=== PATIENT | male | born 1960 | race Caucasian/White ===

== ENCOUNTER 2016-11-21 08:22 | Day surgery (SDC) | payer MEDICARE, MEDICAID ==
[~2016-11-21 08:22] MED LIST: Lactated Ringers 1,000 ML IV SCH
[2016-11-21] MEDS ORDERED: Propofol 200 MG/20 ML SDV ONE (11:22)
[2016-11-21] MEDS ORDERED: fentaNYL 100 MCG/2 ML SDV ONE (11:22)
[2016-11-21] MEDS ORDERED: Lactated Ringers 1,000 ML ONE (12:09)
[2016-11-21 13:58] VITALS: BP 132/60
--- NOTE | 2016-11-21 17:30 | OR ---
DATE OF SURGERY: 11/21/2016. REFERRING PROVIDER: Dianna Tam DO. PRE-OPERATIVE DIAGNOSES: Positive FIT stool card. This is the patient's first colonoscopy. There is no known family history of colon cancer or colon polyps. POST-OPERATIVE DIAGNOSES: 1. Moderately poor prep which did require a significant amount of suctioning. However, I was able to get a good view of the vast majority of the colon mucosa. 2. 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 3. Otherwise, normal colon. PROCEDURE: Colonoscopy. SURGEON: Manny Persaud M.D. ANESTHESIA: Monitored anesthesia care. BOWEL PREP: Moderately poor. DESCRIPTION OF OPERATION: Thomas is a 56-year-old male. The patient was brought to the endoscopy suite after discussing risks and benefits of the procedure. Informed consent was obtained for conscious sedation and colonoscopy with or without biopsy and/or polypectomy. We also discussed possibility of missed lesions. Pre-procedure exam was unremarkable. IV, oxygen, and monitors were placed. The patient was placed in the left lateral decubitus position. Sedation was administered and a digital rectal exam was performed and was unremarkable. Colonoscope was passed to the rectum slowly advanced all the way to the cecum. The bowel prep was moderately poor and did require significant amount of suctioning. However, I was able to adequately view the vast majority of the colonic mucosa. Colonoscope was passed into the rectum and slowly advanced all the way to the cecum. Cecum was viewed and photographed. The colonoscope was slowly withdrawn and the mucosa was closed observed in a direct circumferential manner. The ascending colon was unremarkable. The transverse colon was unremarkable. The descending colon was unremarkable. The sigmoid colon and rectal areas were remarkable for some melanosis coli due to his chronic laxative use. Retroflexion was performed. Rectal mucosa unremarkable. Scope was removed. The patient tolerated the procedure well. The patient was monitored until that baseline status. Discharge instructions were reviewed and the patient was discharged in good condition. COMPLICATIONS: None. TOTAL TIME: 31 minute. RECOMMENDATIONS/FOLLOWUP: The patient to repeat colonoscopy in 10 years. I would like to kindly thank you, Dianna Tam, for this referral. DMB: 11/21/2016 13:02:53 MODL: 11/21/2016 17:22:11 /[id number]
== END 2016-11-21 13:25 | disposition home or self-care (01) ==
LOC: VM.SDS 08:22
PROVIDERS: ATTEND Family Medicine
DX: K63.89 Other specified diseases of intestine (principal); E11.9 Type 2 diabetes mellitus without complications; Z98.890 Other specified postprocedural states; Z79.899 Other long term (current) drug therapy
CPT/HCPCS: 00810; 45378; 82962; J2704; J3010; J7120

== ENCOUNTER 2020-01-14 10:56 | Emergency (ER) | payer MEDICARE, MEDICAID ==
[2020-01-14 11:05] VITALS: BP 122/67; PULSE 62
[2020-01-14] MEDS ORDERED: Sodium Chloride 0.9% 10 ML Syringe FLUSH PRN (11:19)
--- NOTE | 2020-01-14 11:26 | EDM.PDOC ---
ED HPI GENERAL MEDICAL PROBLEM - General Chief Complaint: General Stated Complaint: ER Time Seen by Provider: 01/14/20 11:05 Source of Information: Reports: Patient, Other (long-term paperwork ) History Limitations: Reports: No Limitations - History of Present Illness INITIAL COMMENTS - FREE TEXT/NARRATIVE: Patient comes in to the emergency department with complaints of a decrease in responsiveness and bloody dark urine with lethargy approximately the last 3 days. Patient was sent to the emergency department via patient's PCP after receiving a phone call from the long-term stating that the patient continues to have dark bloody urine and continues to be more lethargic than he normally is. The long-term staff had also noticed that the patient's blood sugar was greater than 400 today which is very abnormal for the patient he normally has very controlled blood sugars. The patient's PCP did obtain a urine sample yesterday which did not show any active infection however did show blood, high bili, and trace of leukocytes. Also documented that the patient was complaining of right abdominal pain that comes and goes. However the patient denies having any right abdominal discomfort today. Onset: Gradual Quality: Reports: Other Improves with: Reports: None Worsens with: Reports: None Associated Symptoms: Reports: Loss of Appetite, Malaise Right Abdomen Pain Score (Numeric/FACES): 5 - Related Data Allergies Allergy/AdvReac Type Severity Reaction Status Date / Time No Known Allergies Allergy Verified 01/14/20 11:13 Home Meds: Home Meds Acetaminophen 325 mg PO Q4H PRN 10/29/16 [History] Aspirin [Halfprin] 81 mg PO BRK 10/29/16 [History] Baclofen 10 mg PO TID 10/29/16 [History] Bisacodyl [Dulcolax] 5 mg PO DAILY PRN 10/29/16 [History] Bisacodyl [Dulcolax] 10 mg RECTAL DAILY PRN 10/29/16 [History] Calcium Citrate/Vitamin D3 [Calcium Citrate + D] 1 tab PO BIDMEALS 10/29/16 [History] Famotidine 20 mg PO BID 10/29/16 [History] Loperamide [Imodium] 2 mg PO ASDIRECTED 10/29/16 [History] Polyethylene Glycol 3350 [MiraLAX] 17 gm PO DAILY 10/29/16 [History] Potassium Chloride [Klor-Con M20] 20 meq PO DAILY 10/29/16 [History] Propranolol [Inderal] 20 mg PO BID 10/29/16 [History] QUEtiapine [SEROquel] 350 mg PO BEDTIME 10/29/16 [History] Sennosides/Docusate Sodium [Senna-Docusate Sodium] 2 tab PO DAILY 10/29/16 [History] Terbinafine [IJD: LamISIL AT 1% Crm] 1 applic TOP DAILY PRN 10/29/16 [History] atorvaSTATin [Lipitor] 10 mg PO BEDTIME 10/29/16 [History] metFORMIN [Glucophage] 1,000 mg PO BIDMEALS 10/29/16 [History] Cyanocobalamin (Vitamin B12) [Vitamin B12] 1,000 mcg PO DAILY 01/14/20 [History] Divalproex Sodium [Depakote Sprinkle] 1,000 mg PO DAILY 01/14/20 [History] Divalproex Sodium [Depakote Sprinkle] 500 mg PO DAILY 01/14/20 [History] Insulin Degludec [Tresiba] 20 unit SQ DAILY 01/14/20 [History] Levothyroxine Sodium [Synthroid] 25 mcg PO DAILY 01/14/20 [History] Lurasidone HCl [Latuda] 80 mg PO DAILY 01/14/20 [History] Multivitamin [Multi-Vitamin Daily] 1 each PO DAILY 01/14/20 [History] Sulfamethoxazole/Trimethoprim [Bactrim Ds Tablet] 1 each PO BID 7 Days #14 01/14/20 [Rx] Past Medical History HEENT History: Reports: Cataract Other HEENT History: presbyopia. myopia. chronic gingivitis Cardiovascular History: Reports: High Cholesterol Respiratory History: Reports: None Gastrointestinal History: Reports: Hemorrhoids Other Gastrointestinal History: bleeding hemorrhoids Genitourinary History: Reports: None Other Musculoskeletal History: muscle spasm right leg. right knee pain Neurological History: Reports: Headaches, Chronic, Neuropathy, Diabetic, Seizure Other Neuro History: right median nerve neuropathy. mild intellectual disability. s/p ventriculoperitoneal shunt. congenital hydrocephalus. tremor Psychiatric History: Reports: Depression Other Psychiatric History: malaise and fatigue. chewing tobacco Endocrine/Metabolic History: Reports: Diabetes, Type II Hematologic History: Reports: None Immunologic History: Reports: None Oncologic (Cancer) History: Reports: None Dermatologic History: Reports: None - Past Surgical History Head Surgeries/Procedures: Reports: None HEENT Surgical History: Reports: Cataract Surgery Cardiovascular Surgical History: Reports: None Respiratory Surgical History: Reports: None GI Surgical History: Reports: None Male Surgical History: Reports: None Endocrine Surgical History: Reports: None Neurological Surgical History: Reports: Other (See Below) Other Neurological Surgeries/Procedures: [employer] shunt Musculoskeletal Surgical History: Reports: None Oncologic Surgical History: Reports: None Dermatological Surgical History: Reports: None Social & Family History - Tobacco Use Smoking Status *Q: Unknown Ever Smoked ED ROS GENERAL - Review of Systems Review Of Systems: Comprehensive ROS is negative, except as noted in HPI. Constitutional: Reports: Weakness, Fatigue, Decreased Appetite HEENT: Reports: No Symptoms Respiratory: Reports: No Symptoms Cardiovascular: Reports: No Symptoms Endocrine: Reports: High Glucose (>400 today ) GI/Abdominal: Reports: No Symptoms : Reports: No Symptoms Neurological: Reports: Weakness Psychiatric: Reports: No Symptoms Hematologic/Lymphatic: Reports: No Symptoms Immunologic: Reports: No Symptoms ED EXAM, GENERAL - Physical Exam Exam: See Below Exam Limited By: No Limitations General Appearance: Alert, WD/WN, No Apparent Distress Neck: Normal Inspection, Supple, Non-Tender, Full Range of Motion Respiratory/Chest: No Accessory Muscle Use, Chest Non-Tender, Decreased Breath Sounds (right lower base ) Cardiovascular: Normal Peripheral Pulses, Regular Rate, Rhythm (Male) Exam: No: Penile Lesions, Rash, Scrotal Swelling, Scrotum Tenderness (L), Scrotum Tenderness (R) Back Exam: Normal Inspection, Full Range of Motion Extremities: Normal Inspection, Non-Tender, Normal Capillary Refill Neurological: Alert, Normal Cognition, Slow to Respond Psychiatric: Normal Affect, Normal Mood Skin Exam: Warm, Dry, Intact, Normal Color Course - Vital Signs Last Recorded V/S: Last Vital Signs Temp 35.2 C L 01/14/20 10:56 Pulse 62 01/14/20 10:56 Resp 14 01/14/20 10:56 BP 122/67 01/14/20 10:56 Pulse Ox 93 L 01/14/20 10:56 - Orders/Labs/Meds Orders: Active Orders 24 hr Category Date Time Status EKG Documentation Completion [RC] STAT Care 01/14/20 11:17 Active CULTURE BLOOD [BC] Stat Lab 01/14/20 11:33 Received CULTURE BLOOD [BC] Stat Lab 01/14/20 11:40 Received UA RFX DEEP AND CULT IF INDIC [URIN] Stat Lab 01/14/20 11:19 Ordered Sodium Chloride 0.9% [Saline Flush] Med 01/14/20 11:19 Active 10 ml FLUSH ASDIRECTED PRN Blood Culture x2 Reflex Set [OM.PC] Stat Oth 01/14/20 11:17 Ordered Peripheral IV Insertion Adult [OM.PC] Stat Oth 01/14/20 11:17 Ordered Medication Orders Sodium Chloride (Saline Flush) 10 ml FLUSH ASDIRECTED PRN PRN Reason: Keep Vein Open Labs: Laboratory Tests 01/14/20 01/14/20 01/14/20 Range/Units 11:33 11:33 11:33 WBC 11.4 H (4.0-10.0) x10^3/uL RBC 4.32 L (4.5-6.0) x10^6/uL Hgb 13.6 L (14.0-18.0) g/dL Hct 41.4 (40.0-52.0) % MCV 95.8 H D (78.0-93.0) fL MCH 31.5 (26.0-32.0) pg MCHC 32.9 (32.0-36.0) g/dL RDW Coeff of Aida 13.5 (10.0-15.0) % Plt Count 170 (130-400) x10^3/uL Neut % (Auto) 55.5 (50.0-80.0) % Lymph % (Auto) 27.9 (25.0-50.0) % [place] % (Auto) 12.3 H (2.0-11.0) % Eos % (Auto) 4.0 (0.0-4.0) % Baso % (Auto) 0.3 (0.2-1.2) % PT 10.2 (9.5-12.3) SEC INR 0.9 L (2.0-3.5) Sodium 141 (136-145) mmol/L Potassium 4.0 (3.5-5.1) mmol/L Chloride 104 (98-107) mmol/L Carbon Dioxide 32 (21-32) mmol/L Anion Gap 9.0 L (10-20) mmol/L BUN 17 (7-18) mg/dL Creatinine 0.6 L (0.70-1.30) mg/dL Est Cr Clr Drug Dosing TNP Estimated GFR (MDRD) > 60 Glucose 87 (74-106) mg/dL Lactic Acid (0.4-2.0) mmol/L Calcium 8.9 (8.5-10.1) mg/dL Corrected Calcium 10.42 H (8.5-10.1) mg/dL Total Bilirubin 0.3 (0.2-1.0) mg/dL AST 8 L (15-37) U/L ALT 9 L (16-63) U/L Alkaline Phosphatase 56 (46-116) U/L Creatine Kinase 13 L (39-308) U/L Troponin I < 0.017 (<=0.056) ng/mL NT-Pro-B Natriuret Pep 104 (<=125) pg/mL Total Protein 5.8 L (6.4-8.2) g/dL Albumin 2.1 L (3.4-5.0) g/dL Globulin 3.7 Albumin/Globulin Ratio 0.57 07/24/20 Range/Units 11:33 WBC (4.0-10.0) x10^3/uL RBC (4.5-6.0) x10^6/uL Hgb (14.0-18.0) g/dL Hct (40.0-52.0) % MCV (78.0-93.0) fL MCH (26.0-32.0) pg MCHC (32.0-36.0) g/dL RDW Coeff of Aida (10.0-15.0) % Plt Count (130-400) x10^3/uL Neut % (Auto) (50.0-80.0) % Lymph % (Auto) (25.0-50.0) % [place] % (Auto) (2.0-11.0) % Eos % (Auto) (0.0-4.0) % Baso % (Auto) (0.2-1.2) % PT (9.5-12.3) SEC INR (2.0-3.5) Sodium (136-145) mmol/L Potassium (3.5-5.1) mmol/L Chloride (98-107) mmol/L Carbon Dioxide (21-32) mmol/L Anion Gap (10-20) mmol/L BUN (7-18) mg/dL Creatinine (0.70-1.30) mg/dL Est Cr Clr Drug Dosing Estimated GFR (MDRD) Glucose (74-106) mg/dL Lactic Acid 1.6 (0.4-2.0) mmol/L Calcium (8.5-10.1) mg/dL Corrected Calcium (8.5-10.1) mg/dL Total Bilirubin (0.2-1.0) mg/dL AST (15-37) U/L ALT (16-63) U/L Alkaline Phosphatase (46-116) U/L Creatine Kinase (39-308) U/L Troponin I (<=0.056) ng/mL NT-Pro-B Natriuret Pep (<=125) pg/mL Total Protein (6.4-8.2) g/dL Albumin (3.4-5.0) g/dL Globulin Albumin/Globulin Ratio Meds: Medications Generic Name Dose Route Start Last Admin Trade Name Freq PRN Reason Stop Dose Admin Sodium Chloride 10 ml 01/14/20 11:19 Saline Flush FLUSH ASDIRECTED PRN Keep Vein Open Discontinued Medications Generic Name Dose Route Start Last Admin Trade Name Freq PRN Reason Stop Dose Admin Ceftriaxone Sodium 1 gm 01/14/20 12:42 Rocephin IVPUSH 01/14/20 12:43 ONETIME ONE Departure - Departure Time of Disposition: 13:00 Disposition: Home, Self-Care 01 Condition: Good Clinical Impression: Cystitis - Discharge Information *PRESCRIPTION DRUG MONITORING PROGRAM REVIEWED*: Not Applicable *COPY OF PRESCRIPTION DRUG MONITORING REPORT IN PATIENT BOB: Not Applicable Prescriptions: Sulfamethoxazole/Trimethoprim [Bactrim Ds Tablet] 1 each PO BID 7 Days #14 Instructions: Urinary Tract Infection, Adult, Probiotics, Sulfamethoxazole; Trimethoprim, SMX-TMP tablets, Ceftriaxone injection Forms: ED Department Discharge Additional Instructions: 1. rest 2. increase your water intake 3. Take all antibiotics as prescribed even if feeling better 4. Take a probiotic while on antibiotics to help promote healthy GI motility 5. Activity and diet as tolerated 6. Can use Ibuprofen and tylenol for any fever or discomfort 7. Follow up with your PCP or return if symptoms progress or worsen 8. Education provided to you regarding your illness, probiotics, antibiotic prescribed 9. Call with any questions or concerns Sepsis Event Note (ED) - Evaluation Sepsis Screening Result: No Definite Risk - Focused Exam Vital Signs: Vital Signs Temp Pulse Resp BP Pulse Ox 01/14/20 10:56 35.2 C L 62 14 122/67 93 L - My Orders Last 24 Hours: My Active Orders 01/14/20 11:17 EKG Documentation Completion [RC] STAT Blood Culture x2 Reflex Set [OM.PC] Stat Peripheral IV Insertion Adult [OM.PC] Stat 01/14/20 11:19 UA RFX DEEP AND CULT IF INDIC [URIN] Stat Sodium Chloride 0.9% [Saline Flush] 10 ml FLUSH ASDIRECTED PRN 01/14/20 11:33 CULTURE BLOOD [BC] Stat 01/14/20 11:40 CULTURE BLOOD [BC] Stat - Assessment/Plan Last 24 Hours: My Active Orders 01/14/20 11:17 EKG Documentation Completion [RC] STAT Blood Culture x2 Reflex Set [OM.PC] Stat Peripheral IV Insertion Adult [OM.PC] Stat 01/14/20 11:19 UA RFX DEEP AND CULT IF INDIC [URIN] Stat Sodium Chloride 0.9% [Saline Flush] 10 ml FLUSH ASDIRECTED PRN 01/14/20 11:33 CULTURE BLOOD [BC] Stat 01/14/20 11:40 CULTURE BLOOD [BC] Stat Assessment:: 1. lethargy 2. hyperglycemia 3. Acute cystitis Plan: 1. Labs completed in the ER. Results reviewed with the patient 2. CT scan completed in the ER. Results reviewed with the patient 3. IV initiated in the emergency department 4. UA completed in ER 5. EKG completed in ER 6. Consultation completed with-Dr. Dianna Tam for she is the patients PCP. Gave up date regarding plan of care, results, and discharge plan. She agrees and will [facility] 7. Rocephin 1gm IV given in ER. 8. Bactrim DS scrip given to be filled 9. Patient and nursing staff was updated regarding the plan of care 10. Patient and family are agreeable to the above plan of care 11. All questions and concerns were addressed with the patient and family prior to discharge
--- NOTE | 2020-01-14 12:06 | CR ---
[id number] RAD/RAD Chest PA or AP 1V EXAM: SINGLE VIEW CHEST. INDICATION: DECREASED BREATH SOUNDS AT RIGHT LUNG BASE COMPARISON: CORRELATION IS MADE WITH JULY 07, 2016 FINDINGS: Elevation of the right hemidiaphragm is stable There is no pneumonia or edema. The cardiac silhouette is unchanged Bilateral ventricular catheters are identified Kyphoscoliosis is seen also IMPRESSION: NO CHANGE SINCE LAST EXAM Buddy Lay MD 01/14/20 [id number] Thank you for allowing us to participate in the care of your patient.
[2020-01-14 12:11] LABS: CHLORIDE,CL 104 mmol/L (98-107); SODIUM,NA 141 mmol/L (136-145)
--- NOTE | 2020-01-14 12:32 | CT ---
[id number] CT/CT Abdomen Pelvis WO IV EXAM: ABDOMEN AND PELVIS CT WITHOUT CONTRAST INDICATION: BLOODY URINE. COMPARISON: None. DISCUSSION: The urinary bladder is diffusely thick-walled and has mild surrounding inflammatory changes suggestive of cystitis, correlation with urinalysis is suggested. A few punctate nonobstructing calculi are suggested in the lower poles of the kidneys. No ureteral calculus or hydronephrosis is seen on either side. Trace left pleural effusion. Partially imaged ventriculoperitoneal shunt catheter tip in the right upper quadrant. Trace free fluid in the pelvis is nonspecific, but could relate to the shunt catheter. Small fat-containing umbilical hernia. Unenhanced images of the liver, gallbladder, spleen, pancreas, adrenal glands, small bowel, large bowel, and the appendix are unremarkable. Scattered degenerative changes in the spine. Mild congenital wedging versus chronic compression fracture at T12. IMPRESSION: 1. Diffuse bladder wall thickening and mild surrounding inflammatory changes are most suggestive of cystitis, correlate with urinalysis. 2. Tiny nonobstructing calculi within the lower poles of the kidneys. No ureteral calculus or hydronephrosis. Macario Benton MD 01/14/20 [id number] Thank you for allowing us to participate in the care of your patient.
[2020-01-14] MEDS ORDERED: cefTRIAXone 1 GM Vial IVPUSH ONE (12:42)
== END 2020-01-14 13:20 | disposition home or self-care (01) ==
LOC: VM.ED 10:56
DX: N30.00 Acute cystitis without hematuria (principal); E11.65 Type 2 diabetes mellitus with hyperglycemia; E78.00 Pure hypercholesterolemia, unspecified; E11.40 Type 2 diabetes mellitus with diabetic neuropathy, unspecified; Z79.82 Long term (current) use of aspirin; Z79.899 Other long term (current) drug therapy
CPT/HCPCS: 36415; 71045; 74176; 80053; 81001; 82550; 83605; 83880; 84484; 85025; 85610; 87040; 93005; 96374; 99283; 99285; J0696

== ENCOUNTER 2020-01-19 13:42 | Emergency (ER) | payer MEDICARE, MEDICAID ==
[2020-01-19] MEDS ORDERED: Sodium Chloride 0.9% 10 ML Syringe FLUSH PRN (13:51)
[2020-01-19] MEDS ORDERED: Lactated Ringers 1,000 ML IV ONE (13:57)
--- NOTE | 2020-01-19 14:01 | EDM.PDOC ---
ED HPI GENERAL MEDICAL PROBLEM - General Chief Complaint: General Time Seen by Provider: 01/19/20 13:50 Source of Information: Reports: Patient History Limitations: Reports: No Limitations - History of Present Illness INITIAL COMMENTS - FREE TEXT/NARRATIVE: Patient comes emergency department today from the residential for concerns of fever and worsening urinary tract infection. This patient was seen in the emergency department on 01/14/2020 and was diagnosed with acute cystitis. He was sent home on Bactrim. At that time he is continued to have some slow decline and just not feeling very well. He has had decreased activity and alertness. No falls per the residential His urine has been reported to be brown in color. Upon arrival the patient really only complains of generalized malaise and f atigue. Some Shortness of breath. Has been on 2 liters of oxygen at the residential which is not typical for him. No Cough and congestion. No chest pain or palpitations. Good appetite. NO abd pain nausea or vomiting. No hematuria dysuria or urinary frequency. No COVID exposure. - Related Data Allergies Allergy/AdvReac Type Severity Reaction Status Date / Time No Known Allergies Allergy Verified 01/19/20 14:05 Home Meds: Home Meds Acetaminophen 650 mg PO Q4H PRN 10/29/16 [History] Aspirin [Halfprin] 81 mg PO BRK 10/29/16 [History] Baclofen 10 mg PO TID 10/29/16 [History] Bisacodyl [Dulcolax] 5 mg PO DAILY PRN 10/29/16 [History] Bisacodyl [Dulcolax] 10 mg RECTAL DAILY PRN 10/29/16 [History] Calcium Citrate/Vitamin D3 [Calcium Citrate + D] 1 tab PO BIDMEALS 10/29/16 [History] Famotidine 20 mg PO BID PRN 10/29/16 [History] Loperamide [Imodium] 2 mg PO ASDIRECTED PRN 10/29/16 [History] Polyethylene Glycol 3350 [MiraLAX] 17 gm PO DAILY 10/29/16 [History] Potassium Chloride [Klor-Con M20] 20 meq PO DAILY 10/29/16 [History] Propranolol [Inderal] 20 mg PO BID 10/29/16 [History] QUEtiapine [SEROquel] 350 mg PO BEDTIME 10/29/16 [History] Sennosides/Docusate Sodium [Senna-Docusate Sodium] 2 tab PO DAILY 10/29/16 [History] Terbinafine [IJD: LamISIL AT 1% Crm] 1 applic TOP DAILY PRN 10/29/16 [History] atorvaSTATin [Lipitor] 10 mg PO BEDTIME 10/29/16 [History] metFORMIN [Glucophage] 1,000 mg PO BIDMEALS 10/29/16 [History] Cyanocobalamin (Vitamin B12) [Vitamin B12] 1,000 mcg PO DAILY 01/14/20 [History] Divalproex Sodium [Depakote Sprinkle] 1,000 mg PO DAILY 01/14/20 [History] Divalproex Sodium [Depakote Sprinkle] 500 mg PO DAILY 01/14/20 [History] Insulin Degludec [Tresiba] 20 unit SQ DAILY 01/14/20 [History] Levothyroxine Sodium [Synthroid] 25 mcg PO DAILY 01/14/20 [History] Lurasidone HCl [Latuda] 80 mg PO DAILY 01/14/20 [History] Multivitamin [Multi-Vitamin Daily] 1 each PO DAILY 01/14/20 [History] Sulfamethoxazole/Trimethoprim [Bactrim Ds Tablet] 1 each PO BID 7 Days #14 01/14/20 [Rx] Doxycycline [Vibramycin] 100 mg PO BID #14 cap 01/19/20 [Rx] Past Medical History HEENT History: Reports: Cataract Other HEENT History: presbyopia. myopia. chronic gingivitis Cardiovascular History: Reports: High Cholesterol Respiratory History: Reports: None Gastrointestinal History: Reports: Hemorrhoids Other Gastrointestinal History: bleeding hemorrhoids Genitourinary History: Reports: None Other Musculoskeletal History: muscle spasm right leg. right knee pain Neurological History: Reports: Headaches, Chronic, Neuropathy, Diabetic, Seizure Other Neuro History: right median nerve neuropathy. mild intellectual disability. s/p ventriculoperitoneal shunt. congenital hydrocephalus. tremor Psychiatric History: Reports: Depression Other Psychiatric History: malaise and fatigue. chewing tobacco Endocrine/Metabolic History: Reports: Diabetes, Type II Hematologic History: Reports: None Immunologic History: Reports: None Oncologic (Cancer) History: Reports: None Dermatologic History: Reports: None - Past Surgical History Head Surgeries/Procedures: Reports: None HEENT Surgical History: Reports: Cataract Surgery Cardiovascular Surgical History: Reports: None Respiratory Surgical History: Reports: None GI Surgical History: Reports: None Male Surgical History: Reports: None Endocrine Surgical History: Reports: None Neurological Surgical History: Reports: Other (See Below) Other Neurological Surgeries/Procedures: INTERPRETER shunt Musculoskeletal Surgical History: Reports: None Oncologic Surgical History: Reports: None Dermatological Surgical History: Reports: None ED ROS GENERAL - Review of Systems Review Of Systems: Comprehensive ROS is negative, except as noted in HPI. 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 ) Cardiovascular: Normal Peripheral Pulses, Regular Rate, Rhythm Peripheral Pulses: 2+: Radial (L), Radial (R), Posterior Tibial (L), Posterior Tibial (R), Dorsalis Pedis (L), Dorsalis Pedis (R) GI/Abdominal: Normal Bowel Sounds, Soft, Non-Tender (Male) Exam: Deferred Rectal (Males) Exam: Deferred Back Exam: Normal Inspection Extremities: Normal Inspection, Normal Range of Motion Neurological: Alert, Oriented, No Motor/Sensory Deficits (From baseline per family in the room. ), Slow to Respond Psychiatric: Flat Affect Skin Exam: Warm, Intact, Diaphoretic EKG INTERPRETATION EKG Date: 01/19/20 Time: 14:12 Rhythm: NSR Rate (Beats/Min): 68 [place]: Normal P-Wave: Present QRS: Normal ST-T: Normal QT: Normal Course - Vital Signs Last Recorded V/S: Last Vital Signs Temp 97.7 F 01/19/20 16:09 Pulse 68 01/19/20 16:09 Resp 18 01/19/20 16:09 BP 96/53 L 01/19/20 16:09 Pulse Ox 99 01/19/20 16:09 - Orders/Labs/Meds Orders: Active Orders 24 hr Category Date Time Status EKG Documentation Completion [RC] STAT Care 01/19/20 13:52 Active CULTURE BLOOD [BC] Stat Lab 01/19/20 13:59 Received CULTURE BLOOD [BC] Stat Lab 01/19/20 14:04 Received REFLEX LACTIC ACID YES OR NO [CHEM] Routine Lab 01/19/20 14:53 Received VALPROIC ACID [REF] Stat Lab 01/19/20 14:04 Received Sodium Chloride 0.9% [Saline Flush] Med 01/19/20 13:51 Active 10 ml FLUSH ASDIRECTED PRN Blood Culture x2 Reflex Set [OM.PC] Stat Oth 01/19/20 13:52 Ordered Peripheral IV Insertion Adult [OM.PC] Stat Oth 01/19/20 13:51 Ordered Medication Orders Sodium Chloride (Saline Flush) 10 ml FLUSH ASDIRECTED PRN PRN Reason: Keep Vein Open Labs: Laboratory Tests 01/19/20 01/19/20 01/19/20 Range/Units 13:59 13:59 13:59 WBC 10.1 H (4.0-10.0) x10^3/uL RBC 4.07 L (4.5-6.0) x10^6/uL Hgb 13.0 L (14.0-18.0) g/dL Hct 39.5 L (40.0-52.0) % MCV 97.1 H (78.0-93.0) fL MCH 31.9 (26.0-32.0) pg MCHC 32.9 (32.0-36.0) g/dL RDW Coeff of Aida 13.6 (10.0-15.0) % Plt Count 162 (130-400) x10^3/uL Add Manual Diff Yes Neutrophils % (Manual) 36 L (50-80) % Band Neutrophils % 4 (0-6) % Lymphocytes % (Manual) 10 L (25-50) % Monocytes % (Manual) 23 H (2-11) % Eosinophils % (Manual) 22 H (0-4) % Metamyelocytes % 4 H (0) % Myelocytes % 1 H (0) % Nucleated RBCs 1 (0-5) /100WBC Platelet Estimate Adequate Anisocytosis 1+ slight H Sodium 141 (136-145) mmol/L Potassium 4.4 (3.5-5.1) mmol/L Chloride 105 (98-107) mmol/L Carbon Dioxide 33 H (21-32) mmol/L Anion Gap 7.4 L (10-20) mmol/L BUN 16 (7-18) mg/dL Creatinine 0.9 (0.70-1.30) mg/dL Est Cr Clr Drug Dosing TNP Estimated GFR (MDRD) > 60 Glucose 91 (74-106) mg/dL Lactic Acid 2.9 H* (0.4-2.0) mmol/L Calcium 8.3 L (8.5-10.1) mg/dL Corrected Calcium 9.90 (8.5-10.1) mg/dL Total Bilirubin 0.2 (0.2-1.0) mg/dL AST 11 L (15-37) U/L ALT 9 L (16-63) U/L Alkaline Phosphatase 52 (46-116) U/L Troponin I < 0.017 (<=0.056) ng/mL C-Reactive Protein 2.4 H (<=0.9) mg/dL Total Protein 5.2 L (6.4-8.2) g/dL Albumin 2.0 L (3.4-5.0) g/dL Globulin 3.2 Albumin/Globulin Ratio 0.63 Urine Color (YELLOW) Urine Appearance (CLEAR) Urine pH (5.0-8.0) Ur Specific [place] Urine Protein (NEGATIVE) mg/dL Urine Glucose (UA) (NEGATIVE) mg/dL Urine Ketones (NEGATIVE) mg/dL Urine Occult Blood (NEGATIVE) Urine Nitrite (NEGATIVE) Urine Bilirubin (NEGATIVE) Urine Urobilinogen (0.2) EU/dL Ur Leukocyte Esterase (NEGATIVE) COVID-19 (REMBERTO) (NEGATIVE) 01/19/20 01/19/20 Range/Units 14:28 14:33 WBC (4.0-10.0) x10^3/uL RBC (4.5-6.0) x10^6/uL Hgb (14.0-18.0) g/dL Hct (40.0-52.0) % MCV (78.0-93.0) fL MCH (26.0-32.0) pg MCHC (32.0-36.0) g/dL RDW Coeff of Aida (10.0-15.0) % Plt Count (130-400) x10^3/uL Add Manual Diff Neutrophils % (Manual) (50-80) % Band Neutrophils % (0-6) % Lymphocytes % (Manual) (25-50) % Monocytes % (Manual) (2-11) % Eosinophils % (Manual) (0-4) % Metamyelocytes % (0) % Myelocytes % (0) % Nucleated RBCs (0-5) /100WBC Platelet Estimate Anisocytosis Sodium (136-145) mmol/L Potassium (3.5-5.1) mmol/L Chloride (98-107) mmol/L Carbon Dioxide (21-32) mmol/L Anion Gap (10-20) mmol/L BUN (7-18) mg/dL Creatinine (0.70-1.30) mg/dL Est Cr Clr Drug Dosing Estimated GFR (MDRD) Glucose (74-106) mg/dL Lactic Acid (0.4-2.0) mmol/L Calcium (8.5-10.1) mg/dL Corrected Calcium (8.5-10.1) mg/dL Total Bilirubin (0.2-1.0) mg/dL AST (15-37) U/L ALT (16-63) U/L Alkaline Phosphatase (46-116) U/L Troponin I (<=0.056) ng/mL C-Reactive Protein (<=0.9) mg/dL Total Protein (6.4-8.2) g/dL Albumin (3.4-5.0) g/dL Globulin Albumin/Globulin Ratio Urine Color Yellow (YELLOW) Urine Appearance Clear (CLEAR) Urine pH 6.5 (5.0-8.0) Ur Specific [place] 1.015 Urine Protein Negative (NEGATIVE) mg/dL Urine Glucose (UA) Negative (NEGATIVE) mg/dL Urine Ketones Negative (NEGATIVE) mg/dL Urine Occult Blood Negative (NEGATIVE) Urine Nitrite Negative (NEGATIVE) Urine Bilirubin Negative (NEGATIVE) Urine Urobilinogen 1.0 (0.2) EU/dL Ur Leukocyte Esterase Negative (NEGATIVE) COVID-19 (REMBERTO) Negative (NEGATIVE) Meds: Medications Generic Name Dose Route Start Last Admin Trade Name Freq PRN Reason Stop Dose Admin Sodium Chloride 10 ml 01/19/20 13:51 Saline Flush FLUSH ASDIRECTED PRN Keep Vein Open Discontinued Medications Generic Name Dose Route Start Last Admin Trade Name Freq PRN Reason Stop Dose Admin Lactated Ringer's 1,000 mls @ 999 mls/hr 01/19/20 13:57 01/19/20 14:12 Ringers, Lactated IV 01/19/20 14:57 999 mls/hr ONETIME ONE Administration - Radiology Interpretation Free Text/Narrative:: Chest x-ray per radiology shows development of a mild left base infiltrate. CT scan of the head per radiology shows bilateral ventricular catheters bilaterally development of mild ventriculomegaly since last exam. recommend interval studies. - Re-Assessments/Exams Free Text/Narrative Re-Assessment/Exam: 01/19/20 14:12 I reviewed the patient's ER visit from 01-14-20. He clearly had quite a bit of RBCs blood protein urobilinogen and glucose in his urine but there was no sign of nitrate leukocyte esterase or WBCs therefore urine culture was not obtained. 01/19/20 14:15 The clinic note for this patient on 01/13/20 also had hematuria with a trace of Leuk esterase on a dip only with urobili as well. The provider note also includes complaints of right lower abd pain from the patient. I wonder if he does not have a urinary stone causing these symptoms as well. As his urine really isn't infectious in nature. CT head with the history of a shunt. Blood cultures x 2 CXR due to hypoxia. Liter of LR bolus. 01/19/20 14:35 Cath UA today is totally negative. No blood bili or signs of infection. This was a cath sample. 01/19/20 17:07 CT head with mild ventriculomegaly although the mother reports the neurosurgeon told her that the shunts have not worked for quite some time. We will recommend a repeat CT scan at the attendings discretion to follow closely. CXR with LLL infiltrates which fits the picture. Depakote level pending. Will send back to the residential on Doxycycline 100mg po bid [address] Binta Tam informed and she is comfortable with this plan. Departure - Departure Time of Disposition: 16:47 Disposition: DC/Tfer to [facility] 03 Clinical Impression: Hypoxia Pneumonia Qualifiers: Pneumonia type: due to unspecified organism Laterality: left Lung location: lower lobe of lung Qualified Code(s): J18.9 - Pneumonia, unspecified organism - Discharge Information Forms: ED Department Discharge Additional Instructions: Start Doxycycline 100mg by mouth twice daily for the next 7days. RX to [facility]. Oxygen to keep sats about 92%. Notify attending provider if requiring more than 4 liters of oxygen. Recommend repeat CT scan in a week to follow up on concerns of mild ventriculomegaly. Dr. Binta Tam is aware of the plan at time of discharge. Return to the ED if new or worsening symptoms. Finish the Bactrim. Sepsis Event Note (ED) - Evaluation Sepsis Screening Result: No Definite Risk - Focused Exam Vital Signs: Vital Signs Temp Pulse Resp BP Pulse Ox Pulse Ox 01/19/20 16:09 97.7 F 68 18 96/53 L 99 01/19/20 16:08 97.6 F 70 16 104/48 L 99 01/19/20 13:45 97.8 F 70 16 108/38 L 93 L 99 - My Orders Last 24 Hours: My Active Orders 01/19/20 13:51 Sodium Chloride 0.9% [Saline Flush] 10 ml FLUSH ASDIRECTED PRN Peripheral IV Insertion Adult [OM.PC] Stat 01/19/20 13:52 EKG Documentation Completion [RC] STAT Blood Culture x2 Reflex Set [OM.PC] Stat 01/19/20 13:59 CULTURE BLOOD [BC] Stat 01/19/20 14:04 CULTURE BLOOD [BC] Stat VALPROIC ACID [REF] Stat 01/19/20 14:53 REFLEX LACTIC ACID YES OR NO [CHEM] Routine - Assessment/Plan Last 24 Hours: My Active Orders 01/19/20 13:51 Sodium Chloride 0.9% [Saline Flush] 10 ml FLUSH ASDIRECTED PRN Peripheral IV Insertion Adult [OM.PC] Stat 01/19/20 13:52 EKG Documentation Completion [RC] STAT Blood Culture x2 Reflex Set [OM.PC] Stat 01/19/20 13:59 CULTURE BLOOD [BC] Stat 01/19/20 14:04 CULTURE BLOOD [BC] Stat VALPROIC ACID [REF] Stat 01/19/20 14:53 REFLEX LACTIC ACID YES OR NO [CHEM] Routine Assessment:: LLL pneumonia hypoxia Mild ventriculomegaly. Plan: Start Doxycycline 100mg by mouth twice daily for the next 7days. RX to [facility]. Oxygen to keep sats about 92%. Notify attending provider if requiring more than 4 liters of oxygen. Recommend repeat CT scan in a week to follow up on concerns of mild ventriculomegaly. Dr. Binta Tam is aware of the plan at time of discharge. Return to the ED if new or worsening symptoms. Finish the Bactrim.
[2020-01-19 14:44] LABS: CHLORIDE,CL 105 mmol/L (98-107); SODIUM,NA 141 mmol/L (136-145)
[2020-01-19 14:52] LABS: ANION GAP 7.4 mmol/L (10-20)
--- NOTE | 2020-01-19 15:34 | CR ---
[id number] RAD/RAD Chest PA or AP 1V EXAM: FRONTAL CHEST INDICATION: Hypoxia and fever. COMPARISON: January 14, 2020. DISCUSSION: Evaluation is somewhat limited by low lung volumes and chronic elevation of the right hemidiaphragm with associated central vascular crowding and basilar atelectasis. Development of mild left base infiltrates. Normal heart size. A shunt catheter overlies the chest and is partially imaged. IMPRESSION: 1. Development of mild left base infiltrates. Macario Benton MD 01/19/20 [id number] Thank you for allowing us to participate in the care of your patient.
--- NOTE | 2020-01-19 16:23 | CT ---
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
[2020-01-19] MEDS ORDERED: Doxycycline 100 MG Cap PO ONE (16:42)
[2020-01-19 17:03] VITALS: BP 104/48; PULSE 70
== END 2020-01-19 17:11 ==
LOC: VM.ED 13:42
DX: J18.9 Pneumonia, unspecified organism (principal); R09.02 Hypoxemia; E78.00 Pure hypercholesterolemia, unspecified; F32.9 Major depressive disorder, single episode, unspecified; E11.40 Type 2 diabetes mellitus with diabetic neuropathy, unspecified; Z20.828 Contact with and (suspected) exposure to other viral communicable diseases; Z79.4 Long term (current) use of insulin; Z98.890 Other specified postprocedural states
CPT/HCPCS: 36415; 70450; 71045; 80053; 80164; 81003; 83605; 84484; 85025; 86140; 87040; 87077; 87186; 93005; 93010; 94760; 96360; 99284-GF; 99285-25; A9270-GY; J7120; U0002

== ENCOUNTER 2023-07-18 23:23 | Inpatient (IN) | payer MEDICARE, OTHER ==
[2023-07-18] MEDS ORDERED: Sodium Chloride 0.9% 1,000 ML IV SCH (23:45)
[2023-07-18] MEDS ORDERED: Acetaminophen 325 MG Tab PO ONE (23:51)
[2023-07-19] LABS: BASOPHILS PERCENT AUTO 0.2 % (0.2-1.2); EOSINOPHILS ABSOLUTE AUTO 0.2 x10^3/uL (0.0-0.5); EOSINOPHILS PERCENT AUTO 1.7 % (0.0-4.0); HEMATOCRIT 44.1 % (40.0-52.0); HEMOGLOBIN 14.1 g/dL (14.0-18.0); IMMATURE GRAN ABSOLUTE AUTO 0.03 x10^3/uL (0.00-0.07); LYMPHOCYTES ABSOLUTE AUTO 2.3 x10^3/uL (1.0-4.8); LYMPHOCYTES PERCENT AUTO 20.6 % (25.0-50.0); MEAN CORPUSCULAR HEMOGLOBIN 29.4 pg (26.0-32.0); MEAN CORPUSCULAR VOLUME 92.1 fL (78.0-93.0); MONOCYTES ABSOLUTE AUTO 2.3 x10^3/uL (0.0-0.8); NEUTROPHILS ABSOLUTE AUTO 6.3 x10^3/uL (1.8-7.7); NEUTROPHILS PERCENT AUTO 56.8 % (50.0-80.0); PLATELET COUNT,PLT 275 x10^3/uL (130-400); RED BLOOD CELL COUNT 4.79 x10^6/uL (4.5-6.0); WHITE BLOOD CELL COUNT,WBC 11.1 x10^3/uL (4.0-10.0)
[2023-07-19 00:05] LABS: MONOCYTES PERCENT AUTO 20.4 % (2.0-11.0)
[2023-07-19 00:18] LABS: A/G RATIO 0.62; ALANINE AMINOTRANSFERASE,ALT 17 U/L (16-63); ALBUMIN 2.4 g/dL (3.4-5.0); ALKALINE PHOSPHATASE 90 U/L (46-116); ASPARTATE AMNIOTRANSFERASE,AST 14 U/L (15-37); BILIRUBIN TOTAL 0.2 mg/dL (0.2-1.0); BLOOD UREA NITROGEN,BUN 19 mg/dL (7-18); CALCIUM 8.5 mg/dL (8.5-10.1); CARBON DIOXIDE,CO2 27 mmol/L (21-32); CHLORIDE,CL 100 mmol/L (98-107); GLUCOSE RANDOM 202 mg/dL (70-99); POTASSIUM,K 4.6 mmol/L (3.5-5.1); PROTEIN TOTAL,TP 6.3 g/dL (6.4-8.2); SODIUM,NA 140 mmol/L (136-145)
[2023-07-19] MEDS ORDERED: Acetaminophen 500 MG Tab PO ONE (00:19)
[2023-07-19] MEDS ORDERED: cefTRIAXone 1 GM Vial IVPUSH ONE (00:19)
[2023-07-19 00:20] LABS: ANION GAP 17.6 mmol/L (5-15); ESTIMATED GFR 86 mL/min (>=60)
[2023-07-19 00:45] LABS: CORONAVIRUS COVID-19 NAA NEGATIVE (NEGATIVE); INFLUENZA A NAA NEGATIVE (NEGATIVE); INFLUENZA B NAA NEGATIVE (NEGATIVE); RESPIRATORY SYNCYTIAL VIR NAA NEGATIVE (NEGATIVE)
[2023-07-19] MEDS ORDERED: Acetaminophen 325 MG Tab PO PRN (01:09)
[2023-07-19] MEDS: Sodium Chloride 0.9% 1,000 ML IV SCH (03:12)
[2023-07-19] MEDS ORDERED: Bisacodyl 5 MG Tab PO PRN (09:15)
[2023-07-19] MEDS ORDERED: Non-Formulary Medication 1 Each (Dulaglutide [Trulicity] 1.5 MG/0.5 ML Pen) SQ SCH (09:15)
[2023-07-19 09:32] LABS: BASOPHILS PERCENT AUTO 0.2 % (0.2-1.2); EOSINOPHILS ABSOLUTE AUTO 0.4 x10^3/uL (0.0-0.5); EOSINOPHILS PERCENT AUTO 3.5 % (0.0-4.0); HEMOGLOBIN 12.8 g/dL (14.0-18.0); IMMATURE GRAN ABSOLUTE AUTO 0.03 x10^3/uL (0.00-0.07); LYMPHOCYTES ABSOLUTE AUTO 2.2 x10^3/uL (1.0-4.8); LYMPHOCYTES PERCENT AUTO 19.8 % (25.0-50.0); MEAN CORPUSCULAR HEMOGLOBIN 28.8 pg (26.0-32.0); MEAN CORPUSCULAR HGB CONC 31.2 g/dL (32.0-36.0); MEAN CORPUSCULAR VOLUME 92.3 fL (78.0-93.0); MONOCYTES ABSOLUTE AUTO 3.1 x10^3/uL (0.0-0.8); MONOCYTES PERCENT AUTO 28.3 % (2.0-11.0); NEUTROPHILS ABSOLUTE AUTO 5.2 x10^3/uL (1.8-7.7); NEUTROPHILS PERCENT AUTO 47.9 % (50.0-80.0); RED BLOOD CELL COUNT 4.44 x10^6/uL (4.5-6.0); WHITE BLOOD CELL COUNT,WBC 10.9 x10^3/uL (4.0-10.0)
[2023-07-19 09:44] LABS: PLATELET COUNT,PLT 252 x10^3/uL (130-400)
[2023-07-19 09:49] LABS: A/G RATIO 0.63; ALANINE AMINOTRANSFERASE,ALT 16 U/L (16-63); ALBUMIN 2.2 g/dL (3.4-5.0); ALKALINE PHOSPHATASE 76 U/L (46-116); ASPARTATE AMNIOTRANSFERASE,AST 13 U/L (15-37); BILIRUBIN TOTAL 0.2 mg/dL (0.2-1.0); BLOOD UREA NITROGEN,BUN 19 mg/dL (7-18); CALCIUM 8.2 mg/dL (8.5-10.1); CARBON DIOXIDE,CO2 30 mmol/L (21-32); CHLORIDE,CL 102 mmol/L (98-107); CREATININE 0.9 mg/dL (0.70-1.30); GLUCOSE RANDOM 96 mg/dL (70-99); POTASSIUM,K 4.4 mmol/L (3.5-5.1); PROTEIN TOTAL,TP 5.7 g/dL (6.4-8.2); SODIUM,NA 141 mmol/L (136-145)
[2023-07-19 09:51] LABS: ANION GAP 13.4 mmol/L (5-15); ESTIMATED GFR 98 mL/min (>=60)
[2023-07-19] MEDS: Potassium Chloride 20 MEQ Tab.ER PO SCH (10:29)
[2023-07-19] MEDS: Multivitamin Tab PO SCH (10:30)
[2023-07-19] MEDS: Divalproex Sodium Delayed-Release 125 MG Cap.Sprink PO SCH ×2 (10:30→19:29)
[2023-07-19] MEDS: Levothyroxine 25 MCG Tab PO SCH (10:34)
[2023-07-19] MEDS: Insulin Glarg,Human.Rec.Analog 100 Unit/ML 10 ML Vial SUBCUT SCH (10:36)
[2023-07-19] MEDS: Propranolol 20 MG Tab PO SCH ×2 (10:37→20:59)
[2023-07-19] MEDS: Polyethylene Glycol 3350 Powder 17 GM Packet PO SCH (10:37)
[2023-07-19] MEDS: Sennosides/Docusate Sodium 50-8.6 MG Tab PO SCH (10:37)
[2023-07-19] MEDS: Cyanocobalamin (Vitamin B12) 1,000 MCG Tab PO SCH (10:37)
[2023-07-19] MEDS: Fluticasone Propionate Nasal Spray 9.9 ML BOTTLE NAS SCH (10:40)
[2023-07-19] MEDS ORDERED: Piperacillin/Tazobactam 4.5 GM in Sodium Chloride 0.9% 100 ML IV ONE (12:00)
[2023-07-19] MEDS ORDERED: Albuterol/Ipratropium 3.0-0.5 MG/3 ML Neb Soln NEB PRN (12:13)
[2023-07-19] MEDS: Baclofen 10 MG Tab PO SCH ×2 (13:04→20:59)
[2023-07-19] MEDS: Calcium Citrate/Vitamin D3 315 MG-250 Unit Tab PO SCH (19:28)
[2023-07-19] MEDS: metFORMIN 500 MG Tab PO SCH (19:29)
[2023-07-19] MEDS: Piperacillin/Tazobactam 3.375 GM in Sodium Chloride 0.9% 100 ML IV SCH (20:56)
[2023-07-19] MEDS: atorvaSTATin 10 MG Tab PO SCH (20:59)
[2023-07-19] MEDS: QUEtiapine 100 MG Tab PO SCH (20:59)
[2023-07-20] MEDS: Sodium Chloride 0.9% 1,000 ML IV SCH (03:30)
[2023-07-20] MEDS: Piperacillin/Tazobactam 3.375 GM in Sodium Chloride 0.9% 100 ML IV SCH ×3 (03:45→20:51)
[2023-07-20] MEDS: Divalproex Sodium Delayed-Release 125 MG Cap.Sprink PO SCH ×2 (09:30→18:29)
[2023-07-20] MEDS: Sennosides/Docusate Sodium 50-8.6 MG Tab PO SCH (09:30)
[2023-07-20] MEDS: metFORMIN 500 MG Tab PO SCH ×2 (09:31→18:28)
[2023-07-20] MEDS: Aspirin 81 MG Tab.EC PO SCH (09:32)
[2023-07-20] MEDS: Propranolol 20 MG Tab PO SCH ×2 (09:32→20:57)
[2023-07-20] MEDS: Calcium Citrate/Vitamin D3 315 MG-250 Unit Tab PO SCH ×2 (09:32→18:28)
[2023-07-20] MEDS: Multivitamin Tab PO SCH (09:32)
[2023-07-20] MEDS: Cyanocobalamin (Vitamin B12) 1,000 MCG Tab PO SCH (09:32)
[2023-07-20] MEDS: Potassium Chloride 20 MEQ Tab.ER PO SCH (09:33)
[2023-07-20] MEDS: Fluticasone Propionate Nasal Spray 9.9 ML BOTTLE NAS SCH (09:38)
[2023-07-20] MEDS: Insulin Glarg,Human.Rec.Analog 100 Unit/ML 10 ML Vial SUBCUT SCH (09:38)
[2023-07-20] MEDS: Baclofen 10 MG Tab PO SCH ×3 (10:00→22:30)
[2023-07-20] MEDS: Levothyroxine 25 MCG Tab PO SCH (10:00)
[2023-07-20 10:09] LABS: BASOPHILS PERCENT AUTO 0.2 % (0.2-1.2); EOSINOPHILS ABSOLUTE AUTO 0.5 x10^3/uL (0.0-0.5); EOSINOPHILS PERCENT AUTO 3.7 % (0.0-4.0); HEMOGLOBIN 11.8 g/dL (14.0-18.0); IMMATURE GRAN ABSOLUTE AUTO 0.07 x10^3/uL (0.00-0.07); LYMPHOCYTES ABSOLUTE AUTO 2.8 x10^3/uL (1.0-4.8); LYMPHOCYTES PERCENT AUTO 21.8 % (25.0-50.0); MEAN CORPUSCULAR HEMOGLOBIN 29.2 pg (26.0-32.0); MEAN CORPUSCULAR HGB CONC 31.9 g/dL (32.0-36.0); MEAN CORPUSCULAR VOLUME 91.6 fL (78.0-93.0); MONOCYTES ABSOLUTE AUTO 2.5 x10^3/uL (0.0-0.8); NEUTROPHILS ABSOLUTE AUTO 6.8 x10^3/uL (1.8-7.7); NEUTROPHILS PERCENT AUTO 53.7 % (50.0-80.0); RED BLOOD CELL COUNT 4.04 x10^6/uL (4.5-6.0); WHITE BLOOD CELL COUNT,WBC 12.7 x10^3/uL (4.0-10.0)
[2023-07-20 10:19] LABS: CALCIUM 7.9 mg/dL (8.5-10.1); CREATININE 0.9 mg/dL (0.70-1.30); EST CRCL DRUG DOSING (CG) 78.77 mL/min; PLATELET COUNT,PLT 239 x10^3/uL (130-400)
[2023-07-20] MEDS ORDERED: Lactated Ringers 1,000 ML IV SCH (10:45)
[2023-07-20] MEDS: Polyethylene Glycol 3350 Powder 17 GM Packet PO SCH (12:22)
[2023-07-20] MEDS ORDERED: methylPREDNISolone Sodium Succinate 40 MG/1 ML SDV IV ONE (12:45)
[2023-07-20] MEDS: Furosemide 40 MG/4 ML VIAL IV SCH (13:15)
[2023-07-20] MEDS: atorvaSTATin 10 MG Tab PO SCH (20:57)
[2023-07-20] MEDS: QUEtiapine 100 MG Tab PO SCH (20:57)
[2023-07-20] MEDS ORDERED: methylPREDNISolone Sodium Succinate 40 MG/1 ML SDV IV SCH (21:00)
[2023-07-21] MEDS: Piperacillin/Tazobactam 3.375 GM in Sodium Chloride 0.9% 100 ML IV SCH ×3 (03:59→20:27)
[2023-07-21 06:51] LABS: BASOPHILS PERCENT AUTO 0.1 % (0.2-1.2); EOSINOPHILS PERCENT AUTO 0.1 % (0.0-4.0); HEMATOCRIT 34.1 % (40.0-52.0); IMMATURE GRAN ABSOLUTE AUTO 0.25 x10^3/uL (0.00-0.07); LYMPHOCYTES ABSOLUTE AUTO 2.3 x10^3/uL (1.0-4.8); LYMPHOCYTES PERCENT AUTO 22.9 % (25.0-50.0); MEAN CORPUSCULAR HEMOGLOBIN 29.5 pg (26.0-32.0); MEAN CORPUSCULAR HGB CONC 32.3 g/dL (32.0-36.0); MEAN CORPUSCULAR VOLUME 91.4 fL (78.0-93.0); MONOCYTES ABSOLUTE AUTO 1.3 x10^3/uL (0.0-0.8); MONOCYTES PERCENT AUTO 13.1 % (2.0-11.0); NEUTROPHILS ABSOLUTE AUTO 6.2 x10^3/uL (1.8-7.7); NEUTROPHILS PERCENT AUTO 61.3 % (50.0-80.0); PLATELET COUNT,PLT 251 x10^3/uL (130-400); RED BLOOD CELL COUNT 3.73 x10^6/uL (4.5-6.0)
[2023-07-21 07:03] LABS: CALCIUM 8.2 mg/dL (8.5-10.1); CREATININE 0.9 mg/dL (0.70-1.30); EST CRCL DRUG DOSING (CG) 78.77 mL/min; POTASSIUM,K 4.1 mmol/L (3.5-5.1)
[2023-07-21 07:04] LABS: ANION GAP 10.1 mmol/L (5-15)
[2023-07-21] MEDS: Furosemide 40 MG/4 ML VIAL IV SCH (08:38)
[2023-07-21] MEDS: Cyanocobalamin (Vitamin B12) 1,000 MCG Tab PO SCH (08:41)
[2023-07-21] MEDS: Baclofen 10 MG Tab PO SCH ×3 (08:41→20:28)
[2023-07-21] MEDS: Aspirin 81 MG Tab.EC PO SCH (08:41)
[2023-07-21] MEDS: Calcium Citrate/Vitamin D3 315 MG-250 Unit Tab PO SCH ×2 (08:42→17:43)
[2023-07-21] MEDS: Multivitamin Tab PO SCH (08:42)
[2023-07-21] MEDS: Sennosides/Docusate Sodium 50-8.6 MG Tab PO SCH (08:42)
[2023-07-21] MEDS: Divalproex Sodium Delayed-Release 125 MG Cap.Sprink PO SCH ×2 (08:45→17:44)
[2023-07-21] MEDS ORDERED: Iopamidol 612 MG/ML 100 ML Bottle IVPUSH ONE (08:45)
[2023-07-21] MEDS: Potassium Chloride 20 MEQ Tab.ER PO SCH (08:46)
[2023-07-21] MEDS: Levothyroxine 25 MCG Tab PO SCH (08:46)
[2023-07-21] MEDS: Polyethylene Glycol 3350 Powder 17 GM Packet PO SCH (08:47)
[2023-07-21] MEDS: Propranolol 20 MG Tab PO SCH ×2 (08:47→20:28)
[2023-07-21] MEDS: metFORMIN 500 MG Tab PO SCH (08:53)
[2023-07-21] MEDS: Insulin Glarg,Human.Rec.Analog 100 Unit/ML 10 ML Vial SUBCUT SCH (08:54)
[2023-07-21] MEDS: Fluticasone Propionate Nasal Spray 9.9 ML BOTTLE NAS SCH (08:58)
[2023-07-21] MEDS ORDERED: Glucagon,Human Recombinant 1 MG Vial IM PRN (11:55)
[2023-07-21] MEDS ORDERED: 50% Dextrose in Water 50 ML Syringe IVPUSH PRN (11:55)
[2023-07-21] MEDS ORDERED: Azithromycin 500 MG in Sodium Chloride 0.9% 250 ML IV SCH (12:00)
[2023-07-21 12:22] LABS: HCO3 VENOUS,POC 38 mmol/L (22-29); O2 SATURATION VENOUS,POC 96 %; PCO2 VENOUS,POC 64 mmHg (41-51); PH VENOUS,POC 7.38 pH (7.32-7.43); PO2 VENOUS,POC 87 mmHg
[2023-07-21] MEDS: Insulin Lispro 100 Units/ML 3 ML Vial SUBCUT SCH ×2 (12:46→17:48)
[2023-07-21] MEDS: Azithromycin 500 MG in Sodium Chloride 0.9% 250 ML IV SCH (16:13)
[2023-07-21] MEDS: Enoxaparin 40 MG/0.4 ML Syringe SUBCUT SCH (20:27)
[2023-07-21] MEDS: QUEtiapine 100 MG Tab PO SCH (20:28)
[2023-07-21] MEDS: atorvaSTATin 10 MG Tab PO SCH (20:28)
[2023-07-22] MEDS: Piperacillin/Tazobactam 3.375 GM in Sodium Chloride 0.9% 100 ML IV SCH ×3 (03:55→19:53)
[2023-07-22 06:48] LABS: BASOPHILS PERCENT AUTO 0.2 % (0.2-1.2); EOSINOPHILS ABSOLUTE AUTO 0.6 x10^3/uL (0.0-0.5); EOSINOPHILS PERCENT AUTO 5.5 % (0.0-4.0); HEMATOCRIT 34.2 % (40.0-52.0); IMMATURE GRAN ABSOLUTE AUTO 0.41 x10^3/uL (0.00-0.07); LYMPHOCYTES ABSOLUTE AUTO 3.7 x10^3/uL (1.0-4.8); LYMPHOCYTES PERCENT AUTO 36.4 % (25.0-50.0); MEAN CORPUSCULAR HEMOGLOBIN 29.6 pg (26.0-32.0); MEAN CORPUSCULAR HGB CONC 32.2 g/dL (32.0-36.0); MEAN CORPUSCULAR VOLUME 91.9 fL (78.0-93.0); MONOCYTES ABSOLUTE AUTO 1.4 x10^3/uL (0.0-0.8); MONOCYTES PERCENT AUTO 13.5 % (2.0-11.0); NEUTROPHILS ABSOLUTE AUTO 4.1 x10^3/uL (1.8-7.7); NEUTROPHILS PERCENT AUTO 40.3 % (50.0-80.0); RED BLOOD CELL COUNT 3.72 x10^6/uL (4.5-6.0); WHITE BLOOD CELL COUNT,WBC 10.1 x10^3/uL (4.0-10.0)
[2023-07-22 07:06] LABS: BASE EXCESS VENOUS 17 mmol/L ((-2)-3); BICARBONATE,VENOUS 41 mmol/L (22-29); O2 SATURATION VENOUS 100 %; PCO2 VENOUS 58 mmHG (41-51); PH,VENOUS 7.45 pH (7.32-7.43); PO2 VENOUS 195 mmHG
[2023-07-22 07:13] LABS: A/G RATIO 0.59; ALBUMIN 1.9 g/dL (3.4-5.0); ANION GAP 4.7 mmol/L (5-15); BILIRUBIN TOTAL 0.1 mg/dL (0.2-1.0); CALCIUM 8.1 mg/dL (8.5-10.1); CREATININE 0.8 mg/dL (0.70-1.30); EST CRCL DRUG DOSING (CG) 88.61 mL/min; POTASSIUM,K 3.7 mmol/L (3.5-5.1); PROTEIN TOTAL,TP 5.1 g/dL (6.4-8.2)
[2023-07-22 07:27] LABS: PLATELET COUNT,PLT 269 x10^3/uL (130-400)
[2023-07-22] MEDS: Sennosides/Docusate Sodium 50-8.6 MG Tab PO SCH (09:08)
[2023-07-22] MEDS: Calcium Citrate/Vitamin D3 315 MG-250 Unit Tab PO SCH ×2 (09:08→17:49)
[2023-07-22] MEDS: Baclofen 10 MG Tab PO SCH ×3 (09:08→20:03)
[2023-07-22] MEDS: Aspirin 81 MG Tab.EC PO SCH (09:08)
[2023-07-22] MEDS: Divalproex Sodium Delayed-Release 125 MG Cap.Sprink PO SCH ×2 (09:08→17:50)
[2023-07-22] MEDS: Cyanocobalamin (Vitamin B12) 1,000 MCG Tab PO SCH (09:08)
[2023-07-22] MEDS: Potassium Chloride 20 MEQ Tab.ER PO SCH (09:08)
[2023-07-22] MEDS: Furosemide 40 MG/4 ML VIAL IV SCH (09:09)
[2023-07-22] MEDS: Propranolol 20 MG Tab PO SCH ×2 (09:09→20:03)
[2023-07-22] MEDS: Levothyroxine 25 MCG Tab PO SCH (09:09)
[2023-07-22] MEDS: Fluticasone Propionate Nasal Spray 9.9 ML BOTTLE NAS SCH (09:10)
[2023-07-22] MEDS: Insulin Glarg,Human.Rec.Analog 100 Unit/ML 10 ML Vial SUBCUT SCH (09:11)
[2023-07-22] MEDS: Polyethylene Glycol 3350 Powder 17 GM Packet PO SCH (09:12)
[2023-07-22] MEDS: Insulin Lispro 100 Units/ML 3 ML Vial SUBCUT SCH ×2 (12:40→17:53)
[2023-07-22] MEDS: Azithromycin 500 MG in Sodium Chloride 0.9% 250 ML IV SCH (17:46)
[2023-07-22] MEDS: Enoxaparin 40 MG/0.4 ML Syringe SUBCUT SCH (20:01)
[2023-07-22] MEDS: QUEtiapine 100 MG Tab PO SCH (20:02)
[2023-07-22] MEDS: atorvaSTATin 10 MG Tab PO SCH (20:02)
[2023-07-23] MEDS: Piperacillin/Tazobactam 3.375 GM in Sodium Chloride 0.9% 100 ML IV SCH (03:49)
[2023-07-23 06:41] VITALS: PULSE 78
[2023-07-23 06:58] LABS: HEMOGLOBIN 10.9 g/dL (14.0-18.0); MEAN CORPUSCULAR HEMOGLOBIN 28.8 pg (26.0-32.0); MEAN CORPUSCULAR HGB CONC 31.1 g/dL (32.0-36.0); MEAN CORPUSCULAR VOLUME 92.6 fL (78.0-93.0); PLATELET COUNT,PLT 282 x10^3/uL (130-400); RED BLOOD CELL COUNT 3.78 x10^6/uL (4.5-6.0); WHITE BLOOD CELL COUNT,WBC 10.2 x10^3/uL (4.0-10.0)
[2023-07-23 07:13] LABS: CALCIUM 8.2 mg/dL (8.5-10.1); CREATININE 0.9 mg/dL (0.70-1.30); EST CRCL DRUG DOSING (CG) 78.77 mL/min; POTASSIUM,K 3.5 mmol/L (3.5-5.1)
[2023-07-23 07:25] LABS: ANION GAP 6.5 mmol/L (5-15)
[2023-07-23] MEDS: Divalproex Sodium Delayed-Release 125 MG Cap.Sprink PO SCH (08:06)
[2023-07-23 08:08] LABS: ANISOCYTOSIS 1+ SLIGHT; BAND PERCENT MAN 7 % (0-6); EOSINOPHILS ABSOLUTE MAN 1.3 x10^3/uL (0.0-0.5); EOSINOPHILS PERCENT MAN 13 % (0-4); HYPOCHROMASIA 2+ MODERATE; LYMPHOCYTES ABSOLUTE MAN 3.9 x10^3/uL (1.0-4.8); LYMPHOCYTES PERCENT MAN 38 % (25-50); MONOCYTES ABSOLUTE MAN 1.8 x10^3/uL (0.0-0.8); MONOCYTES PERCENT MAN 18 % (2-11); NEUTROPHILS ABSOLUTE MAN 3.2 x10^3/uL (1.8-7.7); PLATELET COUNT ESTIMATE ADEQUATE; SEG NEUTROPHILS PERCENT MAN 24 % (50-80)
[2023-07-23] MEDS: Aspirin 81 MG Tab.EC PO SCH (08:09)
[2023-07-23] MEDS: Calcium Citrate/Vitamin D3 315 MG-250 Unit Tab PO SCH (08:09)
[2023-07-23] MEDS: Potassium Chloride 20 MEQ Tab.ER PO SCH (08:09)
[2023-07-23] MEDS: Baclofen 10 MG Tab PO SCH (08:10)
[2023-07-23] MEDS: Sennosides/Docusate Sodium 50-8.6 MG Tab PO SCH (08:10)
[2023-07-23] MEDS: Levothyroxine 25 MCG Tab PO SCH (08:10)
[2023-07-23] MEDS: Cyanocobalamin (Vitamin B12) 1,000 MCG Tab PO SCH (08:10)
[2023-07-23] MEDS: Propranolol 20 MG Tab PO SCH (08:10)
[2023-07-23] MEDS: Polyethylene Glycol 3350 Powder 17 GM Packet PO SCH (08:15)
[2023-07-23] MEDS: Insulin Glarg,Human.Rec.Analog 100 Unit/ML 10 ML Vial SUBCUT SCH (08:19)
[2023-07-23] MEDS: Insulin Lispro 100 Units/ML 3 ML Vial SUBCUT SCH (08:21)
[2023-07-23] MEDS: Fluticasone Propionate Nasal Spray 9.9 ML BOTTLE NAS SCH (08:24)
[2023-07-23] MEDS ORDERED: Insulin Glarg,Human.Rec.Analog 100 Unit/ML 10 ML Vial SUBCUT SCH (08:45)
[2023-07-23 10:08] VITALS: BP 128/74
== END 2023-07-23 10:48 | DRG 871 ==
LOC: VM.ED 23:23 → VM.MS 07-19 01:10
PROVIDERS: ADMIT Physician Assistant; ATTEND Physician Assistant
DX: A41.9 Sepsis, unspecified organism (principal); J18.9 Pneumonia, unspecified organism; J96.01 Acute respiratory failure with hypoxia; J69.0 Pneumonitis due to inhalation of food and vomit; F31.81 Bipolar II disorder; E11.65 Type 2 diabetes mellitus with hyperglycemia; G40.909 Epilepsy, unspecified, not intractable, without status epilepticus; E78.00 Pure hypercholesterolemia, unspecified; G25.0 Essential tremor; F79 Unspecified intellectual disabilities; E78.2 Mixed hyperlipidemia; E11.40 Type 2 diabetes mellitus with diabetic neuropathy, unspecified; Y95 Nosocomial condition; I10 Essential (primary) hypertension; D64.9 Anemia, unspecified; E03.9 Hypothyroidism, unspecified; Q03.9 Congenital hydrocephalus, unspecified; Z79.4 Long term (current) use of insulin; Z79.82 Long term (current) use of aspirin; Z79.84 Long term (current) use of oral hypoglycemic drugs; Z79.890 Hormone replacement therapy; Z98.890 Other specified postprocedural states; Z11.52 Encounter for screening for COVID-19; Z79.899 Other long term (current) drug therapy
CPT/HCPCS: 0241U; 36415; 70450; 71045; 71260; 80048; 80053; 82140; 82803; 82947; 83605; 83880; 84145; 84484; 85025; 86140; 87040; 87070; 92610-GN; 93005; 93010; 94760; 96360; 99284; 99285-25; A9270-GY; J0456; J0696; J1650; J1815-GY; J1940; J2543; J2920; J3490; J7030; J7050; J7620-GY; Q9967

== ENCOUNTER 2024-08-22 17:22 | Emergency (ER) | payer MEDICARE, OTHER ==
[2024-08-22] MEDS: Diltiazem 50 MG/10 ML SDV IVPUSH ONE ×2 (17:36→19:23)
[2024-08-22 17:57] LABS: BASOPHILS PERCENT AUTO 0.1 % (0.2-1.2); EOSINOPHILS ABSOLUTE AUTO 0.2 x10^3/uL (0.0-0.5); EOSINOPHILS PERCENT AUTO 1.3 % (0.0-4.0); HEMATOCRIT 37.9 % (40.0-52.0); HEMOGLOBIN 12.2 g/dL (14.0-18.0); IMMATURE GRAN ABSOLUTE AUTO 0.15 x10^3/uL (0.00-0.07); LYMPHOCYTES ABSOLUTE AUTO 2.2 x10^3/uL (1.0-4.8); LYMPHOCYTES PERCENT AUTO 14.1 % (25.0-50.0); MEAN CORPUSCULAR HEMOGLOBIN 29.3 pg (26.0-32.0); MEAN CORPUSCULAR HGB CONC 32.2 g/dL (32.0-36.0); MEAN CORPUSCULAR VOLUME 90.9 fL (78.0-93.0); MONOCYTES ABSOLUTE AUTO 1.7 x10^3/uL (0.0-0.8); MONOCYTES PERCENT AUTO 11.2 % (2.0-11.0); NEUTROPHILS PERCENT AUTO 72.3 % (50.0-80.0); RED BLOOD CELL COUNT 4.17 x10^6/uL (4.5-6.0); WHITE BLOOD CELL COUNT,WBC 15.2 x10^3/uL (4.0-10.0)
[2024-08-22 18:04] LABS: PLATELET COUNT,PLT 306 x10^3/uL (130-400)
[2024-08-22 18:20] LABS: A/G RATIO 0.54; ALANINE AMINOTRANSFERASE,ALT 18 U/L (16-63); ALBUMIN 2.2 g/dL (3.4-5.0); ALKALINE PHOSPHATASE 125 U/L (46-116); ASPARTATE AMNIOTRANSFERASE,AST 13 U/L (15-37); BILIRUBIN TOTAL 0.2 mg/dL (0.2-1.0); BLOOD UREA NITROGEN,BUN 15 mg/dL (7-18); CALCIUM 8.6 mg/dL (8.5-10.1); CARBON DIOXIDE,CO2 33 mmol/L (21-32); CHLORIDE,CL 101 mmol/L (98-107); CREATININE 0.8 mg/dL (0.70-1.30); GLUCOSE RANDOM 182 mg/dL (70-99); MAGNESIUM 1.6 mg/dL (1.8-2.4); POTASSIUM,K 4.7 mmol/L (3.5-5.1); PRO B-TYPE NATRIUR PEPT,BNPPRO 674 pg/mL (<=125); PROTEIN TOTAL,TP 6.3 g/dL (6.4-8.2); SODIUM,NA 141 mmol/L (136-145)
[2024-08-22 18:21] LABS: ANION GAP 11.7 mmol/L (5-15); ESTIMATED GFR 101 mL/min (>=60)
[2024-08-22 18:26] LABS: HCO3 VENOUS,POC 29 mmol/L (22-29); O2 SATURATION VENOUS,POC 99 %; PCO2 VENOUS,POC 47 mmHg (41-51); PH VENOUS,POC 7.41 pH (7.32-7.43); PO2 VENOUS,POC 157 mmHg
[2024-08-22] MEDS: Diltiazem 125 MG in Sodium Chloride 0.9% 100 ML IV SCH (18:30)
[2024-08-22] MEDS ORDERED: Sodium Chloride 0.9% 1,000 ML IV ONE (19:03)
[2024-08-22] MEDS: cefTRIAXone 1 GM Vial IVPUSH ONE (19:23)
[2024-08-22] MEDS: Furosemide 40 MG/4 ML VIAL IV ONE (19:23)
[2024-08-22] MEDS: Azithromycin 500 MG in Sodium Chloride 0.9% 250 ML IV ONE (19:23)
[2024-08-22 22:25] VITALS: BP 109/58; PULSE 105
== END 2024-08-22 20:12 | disposition short-term general hospital (02) ==
LOC: VM.ED 17:22
DX: J18.9 Pneumonia, unspecified organism (principal); I48.91 Unspecified atrial fibrillation; E78.00 Pure hypercholesterolemia, unspecified; E11.40 Type 2 diabetes mellitus with diabetic neuropathy, unspecified; E03.9 Hypothyroidism, unspecified; Z79.899 Other long term (current) drug therapy; Z79.890 Hormone replacement therapy; Z79.82 Long term (current) use of aspirin
CPT/HCPCS: 36415; 71045; 80053; 82803; 83605; 83735; 83880; 84484; 85025; 93005; 93010; 96365; 96366; 96368; 96375; 96376; 99284; 99285-25; J0456; J0696; J1940; J3490; J7050

== ENCOUNTER 2024-08-31 11:48 | Emergency (ER) | payer MEDICARE, OTHER ==
[2024-08-31 12:15] LABS: BASOPHILS PERCENT AUTO 0.1 % (0.2-1.2); EOSINOPHILS ABSOLUTE AUTO 0.2 x10^3/uL (0.0-0.5); EOSINOPHILS PERCENT AUTO 2.3 % (0.0-4.0); HEMATOCRIT 36.8 % (40.0-52.0); HEMOGLOBIN 11.1 g/dL (14.0-18.0); IMMATURE GRAN ABSOLUTE AUTO 0.03 x10^3/uL (0.00-0.07); LYMPHOCYTES ABSOLUTE AUTO 1.5 x10^3/uL (1.0-4.8); LYMPHOCYTES PERCENT AUTO 18.9 % (25.0-50.0); MEAN CORPUSCULAR HEMOGLOBIN 28.5 pg (26.0-32.0); MEAN CORPUSCULAR HGB CONC 30.2 g/dL (32.0-36.0); MEAN CORPUSCULAR VOLUME 94.6 fL (78.0-93.0); MONOCYTES ABSOLUTE AUTO 0.9 x10^3/uL (0.0-0.8); MONOCYTES PERCENT AUTO 10.9 % (2.0-11.0); NEUTROPHILS ABSOLUTE AUTO 5.3 x10^3/uL (1.8-7.7); NEUTROPHILS PERCENT AUTO 67.4 % (50.0-80.0); RED BLOOD CELL COUNT 3.89 x10^6/uL (4.5-6.0); WHITE BLOOD CELL COUNT,WBC 7.9 x10^3/uL (4.0-10.0)
[2024-08-31 12:16] VITALS: PULSE 90
[2024-08-31 12:26] LABS: PLATELET COUNT,PLT 272 x10^3/uL (130-400)
[2024-08-31 12:29] LABS: HCO3 VENOUS,POC 42 mmol/L (22-29); O2 SATURATION VENOUS,POC 97 %; PCO2 VENOUS,POC 82 mmHg (41-51); PH VENOUS,POC 7.32 pH (7.32-7.43); PO2 VENOUS,POC 101 mmHg
[2024-08-31 12:34] LABS: INR 0.9 (0.9-1.1); PROTHROMBIN TIME 10.2 SEC (9.6-12.0); PTT,PARTIAL THROMBOPLSTIN TIME 25.7 SEC (23.5-33.2)
[2024-08-31 12:39] LABS: A/G RATIO 0.63; ALBUMIN 2.4 g/dL (3.4-5.0); ANION GAP 1.3 mmol/L (5-15); BILIRUBIN TOTAL 0.2 mg/dL (0.2-1.0); C-REACTIVE PROTEIN 1.05 mg/dL (<=0.50); CALCIUM 8.3 mg/dL (8.5-10.1); CREATININE 0.6 mg/dL (0.70-1.30); EST CRCL DRUG DOSING (CG) 112.47 mL/min; MAGNESIUM 1.8 mg/dL (1.8-2.4); POTASSIUM,K 4.3 mmol/L (3.5-5.1); PROTEIN TOTAL,TP 6.2 g/dL (6.4-8.2)
[2024-08-31] MEDS: cefTRIAXone 1 GM Vial IVPUSH ONE (12:39)
[2024-08-31 12:40] LABS: LACTIC ACID 2.3 mmol/L (0.4-2.0)
[2024-08-31] MEDS: Lactated Ringers 1,000 ML IV ONE (12:46)
[2024-08-31] MEDS: methylPREDNISolone Sodium Succinate 125 MG/2 ML SDV IV ONE (12:54)
[2024-08-31] MEDS ORDERED: VANCOmycin 1.25 GM/250 ML 1.25 GM in Premix Bag 1 BAG IV ONE (13:00)
[2024-08-31] MEDS: Azithromycin 500 MG in Sodium Chloride 0.9% 250 ML IV ONE (13:15)
[2024-08-31] MEDS: VANCOmycin 1.25 GM/250 ML 1.25 GM in Premix Bag 1 BAG IV ONE (13:15)
[2024-08-31] MEDS: Azithromycin 500 MG in Sodium Chloride 0.9% 250 ML IV SCH (13:15)
[2024-08-31 14:46] LABS: HCO3 VENOUS,POC 37 mmol/L (22-29); O2 SATURATION VENOUS,POC 88 %; PCO2 VENOUS,POC 69 mmHg (41-51); PH VENOUS,POC 7.34 pH (7.32-7.43); PO2 VENOUS,POC 61 mmHg
[2024-08-31 15:31] VITALS: BP 151/51
== END 2024-08-31 15:13 | disposition short-term general hospital (02) ==
LOC: VM.ED 11:48 → SUPCPDRO 11:48 → VM.ED 15:13
DX: J18.9 Pneumonia, unspecified organism (principal); J96.21 Acute and chronic respiratory failure with hypoxia; E78.00 Pure hypercholesterolemia, unspecified; E11.40 Type 2 diabetes mellitus with diabetic neuropathy, unspecified; E03.9 Hypothyroidism, unspecified; Z79.82 Long term (current) use of aspirin; Z79.899 Other long term (current) drug therapy; Z79.84 Long term (current) use of oral hypoglycemic drugs; Z79.890 Hormone replacement therapy
CPT/HCPCS: 36415; 71045; 80053; 82803; 83605; 83735; 84484; 85025; 85610; 85730; 86140; 87040; 87428; 94660; 96365; 96368; 96375; 99285; J0456; J0696; J2919; J3372; J7050; J7120